=== PATIENT | male | born 1990 | race Caucasian/White ===

== ENCOUNTER 2021-08-14 02:37 | Inpatient (IN) | payer SELFPAY ==
--- OUTSIDE RECORDS SUMMARY | 2021-08-14 02:40 | XMS REPORT | Continuity of Care Document ---
:1990 Author Organization [facility] t Address [address] [place] [address] Care Team Providers Name Role Phone PCP, DOES NOT HAVE A Primary Care Physician Unavailable Soraya WINTERS Attending Clinician Unavailable Lamberto OCASIO Attending Clinician Unavailable Christina BERGER Admitting Clinician Unavailable Lamberto OCASIO Admitting Clinician Unavailable Problems This patient has no known problems. Allergies, Adverse Reactions, Alerts Allergy Allergy Status Severity Reaction(s) Onset Inactive Treating Comm ents Source Name Type Date Date Clinician [facility] DRUG Active Swelling Univer s IN [facility]GR[facility]I 05-14 ity of 00:00: [address] Medications This patient has no known medications. Procedures This patient has no known procedures. Encounters Start End Encounter Admission Attending Care Care Encounter Source Date/Time Date/Time Type Type Clinicians Facility Department ID 2019-10-02 2019-10-02 Emergency X VIANEY [facility] ERT [id number] [facility] 08:16:40 10:55:[address] [facility] 2019-03-25 2019-03-25 Emergency X NINFA [facility] ERT [id number] [facility] 17:46:17 20:04:[address] [facility] Results This patient has no known results.
[2021-08-14] MEDS ORDERED: MORPHINE 4 MG/ML SYR ONE (03:24)
[2021-08-14] MEDS ORDERED: ONDANSETRON 4 MG/2 ML VIAL ONE (03:24)
[2021-08-14 03:31] LABS: Absolute Lymphocytes (CBC) 2.2 K/uL (0.7-4.9); Hematocrit 47.2 % (39.6-49.0); MPV 7.9 fL (7.6-11.3)
[2021-08-14 03:47] LABS: ALT/SGPT 26 U/L (12-78); AST/SGOT 25 U/L (15-37); Albumin 4.7 g/dL (3.4-5.0); Alkaline Phosphatase 74 U/L (45-117); BUN Blood Urea Nitrogen 18 mg/dL (7-18); Bicarbonate 28 mmol/L (21-32); Bilirubin Total 1.1 mg/dL (0.2-1.0); Glucose Level 111 mg/dL (74-106); Lipase 156 U/L (73-393); Potassium 3.6 mmol/L (3.5-5.1); Protein, Total 8.4 g/dL (6.4-8.2); Sodium Level 138 mmol/L (136-145)
[2021-08-14] MEDS ORDERED: PROMETHAZINE INJ 25 MG/ML AMP ONE (05:08)
[2021-08-14] MEDS ORDERED: PIPERACIL/TAZO 3.375 GM VIAL IV ONE ×2 (05:27→09:37)
[2021-08-14] MEDS ORDERED: NA CHLORIDE 0.9% 100 ML ONE (05:29)
--- NOTE | 2021-08-14 06:18 | ER ---
Nurse's Notes [facility] Name: Elías Marinelli Age: 31 yrs Sex: Male : 1990 Arrival Date: 08/14/2021 Time: 02:38 Bed 7 [facility] MD: Diagnosis: Unspecified acute appendicitis Presentation: 08/14 02:49 Chief complaint: Patient states: he is having abdominal pain with nausea and vomiting bb which started yesterday denies diarrhea or fever, pain does not radiate. Coronavirus screen: At this time, the client does not indicate any symptoms associated with coronavirus-19. Ebola Screen: No symptoms or risks identified at this time. Initial Sepsis Screen: Does the patient meet any 2 criteria? No. Patient's initial sepsis screen is negative. Does the patient have a suspected source of infection? No. Patient's initial sepsis screen is negative. Risk Assessment: Do you want to hurt yourself or someone else? Patient reports no desire to harm self or others. Onset of symptoms was August 13, 2021. 02:49 Method Of Arrival: Ambulatory bb 02:49 Acuity: ALEE 3 bb Historical: - Allergies: 02:51 eye drop; bb - Home Meds: 02:51 None [Active]; bb - PMHx: 02:51 None; bb - PSHx: 02:51 None; bb - Immunization history:: Client reports having NOT received the Covid vaccine. - Social history:: Smoking status: Patient reports the use of cigarette tobacco products, Patient/guardian denies using alcohol. Screenin:13 Abuse screen: Denies threats or abuse. Nutritional screening: No deficits noted. ag7 Tuberculosis screening: No symptoms or risk factors identified. Fall Risk No fall in past 12 months (0 pts). No secondary diagnosis (0 pts). No IV (0 pts). Ambulatory Aid- None/Bed Rest/Nurse Assist (0 pts). Gait- Normal/Bed Rest/Wheelchair (0 pts) Mental Status- Oriented to own ability (0 pts). Total Murillo Fall Scale indicates No Risk (0-24 pts). Assessment: 03:00 General: Appears in no apparent distress. slender, Behavior is calm, cooperative, ag7 appropriate for age. Pain: Complains of pain in umbilical area, right upper quadrant and left upper quadrant Pain does not radiate. Pain currently is 10 out of 10 on a pain scale. Quality of pain is described as aching, Pain began suddenly, Is continuous, Alleviated by nothing. Aggravated by. Neuro: Level of Consciousness is awake, alert, obeys commands, Oriented to person, place, time, situation, Appropriate for age. Cardiovascular: Denies chest pain, Heart tones S1 S2 present. Respiratory: Airway is patent Trachea midline Respiratory effort is even, unlabored, Respiratory pattern is regular, symmetrical. GI: Abdomen is non-distended, Bowel sounds present X 4 quads. Abd is soft X 4 quads Abdomen is tender to palpation in umbilical area Reports nausea, vomiting, Patient currently denies diarrhea. 03:23 Reassessment: Verbal order received to give the patient Zofran 4 mg IVP and Morphine 4 ag7 mg IVP for nausea and pain, order read back MD Apple. 04:30 Reassessment: Patient and/or family updated on plan of care and expected duration. Pain ag7 level reassessed. Patient is alert, oriented x 3, equal unlabored respirations, skin warm/dry/pink. Patient states feeling better. Patient states symptoms have improved. 05:10 GI: Pt is actively vomiting clear fluid, 50 ml. ag7 Vital Signs: 02:49 BP 134 / 84; Pulse 69; Resp 16 S; Temp 97.8(O); Pulse Ox 100% on R/A; Weight 90.72 kg bb (R); Height 6 ft. 0 in. (182.88 cm) (R); Pain 9/10; 03:30 BP 132 / 76; Pulse 69; Resp 16; Pulse Ox 96% on R/A; ll3 04:30 BP 152 / 93; Pulse 71; Resp 17; Pulse Ox 100% on R/A; ll3 04:47 Pain 8/10; ag7 05:15 BP 146 / 94; Pulse 70; Resp 16 S; Pulse Ox 98% on R/A; Pain 9/10; ag7 06:00 BP 142 / 87; Pulse 73; Resp 16; Pulse Ox 96% on R/A; Pain 8/10; ag7 02:49 Body Mass Index 27.12 (90.72 kg, 182.88 cm) ED Course: 02:38 Patient arrived in ED. romaine 02:51 Triage completed. bb 02:51 Arm band placed on Patient placed in an exam room, on a stretcher, on pulse oximetry. bb 03:00 Brenda Shi, RN is Primary Nurse. ag7 03:12 Inserted saline lock: 20 gauge in right antecubital area, using aseptic technique. ag7 Blood collected. 03:13 Patient has correct armband on for positive identification. Bed in low position. Call ag7 light in reach. Side rails up X 1. 03:26 Ezio Apple MD is Attending Physician. 7 05:04 CT Abd/Pelvis - IV Contrast Only In Process Unspecified. EDMS 06:03 Surgeon paged at 06:05 Dr. Orta. eb 06:17 Hamzah Orta MD is Hospitalizing Provider. 7 06:26 COVID-19/FLU A+B (Document "Date of Onset" if Symptomatic) Sent. ag7 Administered Medications: 03:30 Drug: morphine 4 mg {Note: RASS 0.} Route: IVP; Site: right antecubital; ag7 04:47 Follow up: Pain 8/10 Adult; Response: No adverse reaction; Pain is decreased ag7 03:31 Drug: Zofran (Ondansetron) 4 mg Route: IVP; Site: right antecubital; ag7 04:30 Follow up: Response: No adverse reaction; Nausea unchanged ag7 05:09 Drug: Phenergan (promethazine) 12.5 mg Route: IVP; Site: right antecubital; ag7 06:09 Follow up: Response: No adverse reaction; Marked relief of symptoms ag7 05:33 Drug: Zosyn (piperacillin-tazobactam) 3.375 grams Route: IVPB; Infused Over: 60 mins; ag7 Site: right antecubital; 06:19 Follow up: Response: No adverse reaction ag7 06:39 Follow up: IV Status: Completed infusion; IV Intake: 100ml ag7 Intake: 06:39 IV: 100ml; Total: 100ml. ag7 Outcome: 06:17 Decision to Hospitalize by Provider. 7 09:56 Patient left the ED. iw Signatures: Dispatcher [employer] EDMS Yen Saldivar RN RN bb Keisha Graham RN RN Yasmin Victoria Ezio Apple MD MD [facility] Shannan Quintana RN RN ll3 Marya Rodriguez Angela, RN RN ag7 Corrections: (The following items were deleted from the chart) 02:52 02:51 Allergies: No Known Allergies; bb bb 03:12 03:12 Inserted saline lock: 20 gauge in right antecubital area, using aseptic ag7 technique. ag7 04:48 04:30 Response: No adverse reaction; Nausea unchanged ag7 ag7
--- NOTE | 2021-08-14 06:18 | EDPHYS ---
Physician Documentation [facility] Name: Elías Marinelli Age: 31 yrs Sex: Male : 1990 Arrival Date: 08/14/2021 Time: 02:38 Bed 7 Private MD: ED Physician Ezio Apple HPI: 08/14 03:25 This 31 yrs old Male presents to ER via Ambulatory with complaints of Abdominal Pain, mh7 Back Pain. 03:25 The patient presents with abdominal pain that is diffuse. mh7 03:25 Onset: The symptoms/episode began/occurred yesterday. The symptoms do not radiate. mh7 Associated signs and symptoms: Pertinent positives: nausea and vomiting, Pertinent negatives: anorexia, blood in stools, chest pain, constipation, diarrhea, dysuria, fever, headache, hematuria, palpitations, shortness of breath, testicular pain, vomiting blood. The symptoms are described as intermittent, vague, waxing/waning. Modifying factors: The symptoms are alleviated by nothing, the symptoms are aggravated by nothing. Severity of pain: At its worst the pain was moderate last night, in the emergency department the pain is unchanged. Historical: - Allergies: 02:51 eye drop; bb - Home Meds: 02:51 None [Active]; bb - PMHx: 02:51 None; bb - PSHx: 02:51 None; bb - Immunization history:: Client reports having NOT received the Covid vaccine. - Social history:: Smoking status: Patient reports the use of cigarette tobacco products, Patient/guardian denies using alcohol. ROS: 03:25 Constitutional: Negative for fever, chills, and weight loss, Eyes: Negative for injury, mh7 pain, redness, and discharge, ENT: Negative for injury, pain, and discharge, Neck: Negative for injury, pain, and swelling, Cardiovascular: Negative for chest pain, palpitations, and edema, Respiratory: Negative for shortness of breath, cough, wheezing, and pleuritic chest pain, Back: Negative for injury and pain, : Negative for injury, bleeding, discharge, and swelling, MS/Extremity: Negative for injury and deformity, Skin: Negative for injury, rash, and discoloration, Neuro: Negative for headache, weakness, numbness, tingling, and seizure, Psych: Negative for depression, anxiety, suicide ideation, homicidal ideation, and hallucinations, Allergy/Immunology: Negative for hives, rash, and allergies, Endocrine: Negative for neck swelling, polydipsia, polyuria, polyphagia, and marked weight changes, Hematologic/Lymphatic: Negative for swollen nodes, abnormal bleeding, and unusual bruising. Exam: 03:25 Head/Face: Normocephalic, atraumatic. Eyes: Pupils equal round and reactive to light, mh7 extra-ocular motions intact. Lids and lashes normal. Conjunctiva and sclera are non-icteric and not injected. Cornea within normal limits. Periorbital areas with no swelling, redness, or edema. Neck: Trachea midline, no thyromegaly or masses palpated, and no cervical lymphadenopathy. Supple, full range of motion without nuchal rigidity, or vertebral point tenderness. No Meningismus. Chest/axilla: Normal chest wall appearance and motion. Nontender with no deformity. No lesions are appreciated. Cardiovascular: Regular rate and rhythm with a normal S1 and S2. No gallops, murmurs, or rubs. Normal PMI, no JVD. No pulse deficits. Respiratory: Lungs have equal breath sounds bilaterally, clear to auscultation and percussion. No rales, rhonchi or wheezes noted. No increased work of breathing, no retractions or nasal flaring. 03:25 Back: No spinal tenderness. No costovertebral tenderness. Full range of motion. Skin: Warm, dry with normal turgor. Normal color with no rashes, no lesions, and no evidence of cellulitis. MS/ Extremity: Pulses equal, no cyanosis. Neurovascular intact. Full, normal range of motion. Neuro: Awake and alert, GCS 15, oriented to person, place, time, and situation. Cranial nerves II-XII grossly intact. Motor strength 5/5 in all extremities. Sensory grossly intact. Cerebellar exam normal. Normal gait. Psych: Awake, alert, with orientation to person, place and time. Behavior, mood, and affect are within normal limits. 03:25 Constitutional: The patient appears in no acute distress, alert, awake, uncomfortable. 03:25 Abdomen/GI: Inspection: abdomen appears normal, Bowel sounds: normal, in all quadrants, Palpation: moderate abdominal tenderness, in all quadrants, mass, is not appreciated, rebound tenderness, is not appreciated, voluntary guarding, is not appreciated, involuntary guarding, is not appreciated, no appreciated organomegaly, Rectal exam: the exam is deferred, because of patient request, Indicators: McBurney's point is not tender, Abarca's sign is negative, Rovsing's sign is negative, Obturator sign is negative, Psoas sign is negative, Liver: no appreciated palpable abnormalities, Hernia: not appreciated. Vital Signs: 02:49 BP 134 / 84; Pulse 69; Resp 16 S; Temp 97.8(O); Pulse Ox 100% on R/A; Weight 90.72 kg bb (R); Height 6 ft. 0 in. (182.88 cm) (R); Pain 9/10; 03:30 BP 132 / 76; Pulse 69; Resp 16; Pulse Ox 96% on R/A; ll3 04:30 BP 152 / 93; Pulse 71; Resp 17; Pulse Ox 100% on R/A; ll3 04:47 Pain 8/10; ag7 05:15 BP 146 / 94; Pulse 70; Resp 16 S; Pulse Ox 98% on R/A; Pain 9/10; ag7 06:00 BP 142 / 87; Pulse 73; Resp 16; Pulse Ox 96% on R/A; Pain 8/10; ag7 02:49 Body Mass Index 27.12 (90.72 kg, 182.88 cm) MDM: 06:15 Differential diagnosis: appendicitis, bowel obstruction, gastritis, gastroesophageal mh7 reflux disease, non-specific abd pain, pancreatitis, urinary tract infection. Data reviewed: vital signs, nurses notes, lab test result(s), CBC, electrolytes, radiologic studies, CT scan. Data interpreted: Pulse oximetry: on room air is 100 %. Interpretation: normal. Counseling: I had a detailed discussion with the patient and/or guardian regarding: the historical points, exam findings, and any diagnostic results supporting the discharge/admit diagnosis, lab results, radiology results, the need for further work-up and treatment in the hospital. Response to treatment: the patient's symptoms have mildly improved after treatment. Physician consultation: Hamzah Orta MD was contacted at 06:10, regarding patient's condition, and will see patient in inpatient room. 06:17 Patient medically screened. [facility] 08/14 03:12 Order name: CBC with Diff; Complete Time: 04:16 7 08/14 03:12 Order name: CMP; Complete Time: 04:16 ag7 08/14 03:12 Order name: Lipase; Complete Time: 04:16 ag7 08/14 03:51 Order name: CT Abd/Pelvis - IV Contrast Only 7 08/14 06:21 Order name: COVID-19/FLU A+B (Document "Date of Onset" if Symptomatic) 7 08/14 03:12 Order name: IV Saline Lock; Complete Time: 03:12 ag7 08/14 03:12 Order name: Labs collected and sent; Complete Time: 03:12 ag7 08/14 06:25 Order name: NPO; Complete Time: 06:40 EDMS Administered Medications: 03:30 Drug: morphine 4 mg {Note: RASS 0.} Route: IVP; Site: right antecubital; ag7 04:47 Follow up: Pain 8 Adult; Response: No adverse reaction; Pain is decreased ag7 03:31 Drug: Zofran (Ondansetron) 4 mg Route: IVP; Site: right antecubital; ag7 04:30 Follow up: Response: No adverse reaction; Nausea unchanged ag7 05:09 Drug: Phenergan (promethazine) 12.5 mg Route: IVP; Site: right antecubital; ag7 06:09 Follow up: Response: No adverse reaction; Marked relief of symptoms ag7 05:33 Drug: Zosyn (piperacillin-tazobactam) 3.375 grams Route: IVPB; Infused Over: 60 mins; ag7 Site: right antecubital; 06:19 Follow up: Response: No adverse reaction ag7 06:39 Follow up: IV Status: Completed infusion; IV Intake: 100ml ag7 Disposition Summary: 08/14/21 06:17 Hospitalization Ordered Hospitalization Status: Inpatient Admission [facility] Provider: Hamzah Orta Condition: Stable [facility] Problem: new [facility] Symptoms: have improved [facility] Bed/Room Type: Standard [facility] Location: [facility] ER HOLD(08/14/21 06:20) cg Room Assignment: ERHOLD-(08/14/21 06:20) cg Diagnosis - Unspecified acute appendicitis [facility] Forms: - Medication Reconciliation Form [facility] - SBAR form [facility] Signatures: Dispatcher [employer] EDMS SaldivarYen RN RN bb Garcia, Cindy, RN RN cg Holmes, Maurice, MD MD [facility] Brenda Shi RN RN 7 Corrections: (The following items were deleted from the chart) 02:52 02:51 Allergies: No Known Allergies; alon chi : 06:17 Telemetry/MedSurg (Inpatient) [facility] 06:20 06:17 [facility]
[2021-08-14] MEDS ORDERED: ONDANSETRON 4 MG/2 ML VIAL IV PRN ×2 (06:21→12:52)
[2021-08-14] MEDS ORDERED: MORPHINE 4 MG/ML SYR IV PRN (06:21)
[2021-08-14 07:30] LABS: SARS-COV-2 RT PCR NEGATIVE (NEGATIVE)
[2021-08-14] MEDS: D5 0.45 NS 1,000 ML IV SCH ×3 (09:30→22:55)
[2021-08-14] MEDS: PIPER TAZO 3.375 GM in NA CHLORIDE 0.9% 100 ML IV SCH ×2 (09:30→16:22)
[2021-08-14] MEDS ORDERED: NA CHLORIDE 0.9% 100 ML IV ONE (09:36)
[2021-08-14] MEDS ORDERED: D5 0.45 NS 1,000 ML IV ONE (09:37)
[2021-08-14] MEDS ORDERED: Ringers Lactate 1,000 ML IV ONE (10:00)
--- NOTE | 2021-08-14 10:45 | P.HP ---
Date of Service: 08/14/21 Chief complaint: Abdominal pain History of present Illness: Patient is a 31-year-old gentleman presents to the emergency room with 1 day history of diffuse abdominal pain worsening over the last 24 hours and associated with nausea and vomiting. Pain is worse on the right side today. Patient has anorexia. Patient denies diarrhea, constipation, blood per rectum, dysuria or hematuria. Patient denies sore throat, headaches, dizziness, cough, chest pain or fever or chills. Review of systems: Otherwise unremarkable Past medical history: Panic attacks, questionable history of seizures, patient is not on any medication Past surgical history: Negative Allergies: None Social history: Denies smoking or drinking alcohol Family history: Noncontributory Vital signs: Stable, currently 100.3 Fahrenheit Physical exam: Awake alert oriented x3 Head and neck: Cranial nerves II through XII grossly within normal limits, no neck masses, no JVD, throat clear and neck is supple Chest: Clear Heart: S1-S2 Abdomen: Soft, slightly distended, hypoactive bowel sounds, diffuse abdominal tenderness with rebound, rigidity and guarding in the right lower quadrant Extremity: Neurovascular intact, nontender with full range of motion Neuro: Nonfocal Diagnostic data: White count is 19.5 with left shift, CT of the abdomen and pelvis shows acute appendicitis with trace pelvic fluid Assessment: Acute appendicitis Plan/recommendation: Admit, n.p.o., IV fluids, IV antibiotics and to the OR for laparoscopic appendectomy possible open. Patient understands risk benefits alternatives and agrees to procedure. CC:
[2021-08-14] MEDS ORDERED: SUCCINYLCHOLINE 20 MG/ML (10 ML) IV ONE (10:50)
[2021-08-14] MEDS ORDERED: BUPIVACAINE 0.5% PF 10 ML VIAL ONE (10:52)
[2021-08-14] MEDS ORDERED: ROCURONIUM 50 MG/5 ML VIAL IV ONE (11:14)
[2021-08-14] MEDS ORDERED: propofoL 200 MG/20 ML VIAL IV ONE (11:14)
[2021-08-14] MEDS ORDERED: FENTANYL CITR 100 MCG/2 ML ONE (11:14)
[2021-08-14] MEDS ORDERED: GLYCOPYRROLATE 0.2 MG/ML SYR ONE (12:11)
[2021-08-14] MEDS ORDERED: NEOSTIGMINE 1 MG/ML -5 ML ONE (12:20)
--- NOTE | 2021-08-14 12:20 | P.OP ---
Date of Service: 08/14/21 Preop diagnosis: Acute appendicitis Postop diagnosis: Same Procedure performed: Laparoscopic appendectomy Surgeon: Hamzah Orta MD Quality Assurance Lab Technician: None Estimated blood loss: Minimal Specimen: Appendix Findings: As above Anesthesia: General Complications: None Drains: None Fluids and blood products: None applicable Disposition: Recovery room Operative note: Patient brought to the OR and placed in supine position. Patient had general anesthesia begun. Patient prepped and draped in usual sterile fashion. Marcaine 0.5% infiltrated locally. 15 blade used to make a 1 cm supraumbilical incision. Subcutaneous tissue divided and fascia identified and divided. #1 Vicryl stay suture placed. Peritoneal cavity entered with sh sagar and blunt dissection. 12 mm trocar placed into the peritoneal cavity under direct vision. Pneumoperitoneum established and 2 5 mm trochars placed into the peritoneal cavity under direct vision. 1 in the suprapubic region and 1 in the left lower quadrant. Laparoscopy revealed acute suppurative appendicitis. There was minimal serous fluid in the pelvis which was aspirated. No other evidence of disease was identified. Endo GAUTAM stapling device was used to divide the base of the appendix on the cecum and the mesoappendix. Appendix retrieved through the umbilicus via Endo Catch bag. Right lower quadrant and pelvis irrigated no evidence of bleeding or bowel leakage appreciated. All trochars removed under direct vision. Stay sutures tied to each other to reapproximate the fascial defect. Subcutaneous wounds irrigated and bleeding controlled with cautery. Magnolia used to close skin. Sterile dressing applied. Patient awakened and taken to recovery room in good general condition. CC:
[2021-08-14] MEDS ORDERED: MEPERIDINE HCL 25 MG/ML SYR ONE (12:26)
[2021-08-14] MEDS ORDERED: HYDROMORPHONE HCL 1 MG/ML INJ IV PRN (12:52)
[2021-08-14] MEDS: HYDROCODONE/APAP 7.5/325 MG TAB PO PRN ×3 (13:53→22:16)
[2021-08-14 14:24] VITALS: BMI 3788.3
--- NOTE | 2021-08-14 20:15 | RAD REPORT ---
EXAM DESCRIPTION: CT - Abdomen Pelvis W Contrast - 08/14/2021 6:44 am CLINICAL HISTORY: Abdominal pain, acute, nonlocalized COMPARISON: None. TECHNIQUE: CT ABDOMEN PELVIS WITH IV CONTRAST on 08/14/2021 3:51 AM CDT This exam was performed according to our departmental dose-optimization program, which includes autom ated exposure control, adjustment of the mA and/or kV according to patient size and/or use of iterati ve reconstruction technique. FINDINGS: Lower lungs are clear. Abdomen: The liver is normal in appearance. There is no biliary dilatation. Gallbladder is normal in appearance. The pancreas and spleen are normal in appearance. There is a 3 mm lower pole left renal c alculus. Right kidney and both adrenal glands are normal. Abdominal aorta is normal in course and caliber without aneurysm. There is no free air. There is no r etroperitoneal adenopathy. There is a tiny fat-containing umbilical abdominal wall hernia. Pelvis: There is no bowel obstruction. Urinary bladder is unremarkable. There is trace free pelvic fl uid. Appendix is diffusely dilated measuring up to 1.3 cm. There is mild surrounding inflammation. Skeleton: There are no acute osseous findings. No suspicious bony lesions. IMPRESSION: Acute appendicitis. Electronically signed by: Maximo Murcia MD 08/14/2021 5:46 AM CDT Due to temporary technical issues with the PACS/Fluency reporting system, reports are being signed by the in house radiologists without review as a courtesy to insure prompt reporting. The interpreting radiologist is fully responsible for the content of the report.
[2021-08-14 20:37] VITALS: O2SAT 100
[2021-08-15] MEDS: PIPER TAZO 3.375 GM in NA CHLORIDE 0.9% 100 ML IV SCH ×2 (01:19→08:31)
[2021-08-15 05:03] LABS: Absolute Lymphocytes (CBC) 3.1 K/uL (0.7-4.9); Hematocrit 42.6 % (39.6-49.0); Lymphocytes % 21.2 % (15.3-44.8); MPV 7.6 fL (7.6-11.3); RBC Red Blood Cell Count 4.86 M/uL (4.33-5.43)
[2021-08-15] MEDS: HYDROCODONE/APAP 7.5/325 MG TAB PO PRN (07:20)
[2021-08-15] MEDS: D5 0.45 NS 1,000 ML IV SCH (07:21)
[2021-08-15 09:38] VITALS: BP 107/64; TEMP 97.8
--- NOTE | 2021-08-15 10:22 | P.DS ---
Admission Date: 08/14/21 Discharge Date: 08/15/21 Disposition: TRANSFER TO GENERAL HOSPITAL Discharge Condition: GOOD Reason for Admission: Abdominal pain Consultations: None Procedures: Laparoscopic appendectomy - Problems (1) Acute appendicitis Current Visit: Yes Status: Acute Brief History of Present Illness: Patient is a 32-year-old gentleman who presented to the emergency room with abdominal pain. Work-up revealed acute appendicitis. Patient taken to the operating room and laparoscopic appendectomy performed. Postoperatively patient is tolerating diet, ambulating, pain controlled on p.o. pain medication and afebrile; therefore, patient will be discharged to home. Patient's leukocytosis has improved. Disposition: Home Condition: Stable Resume home meds and diet Activity as tolerated no heavy lifting more than 10 pounds Follow-up my office in 1 week and call for appointment Prescription for Cipro, Flagyl and Tylenol 3 called into [facility] in [place] Vital Signs/Physical Exam: Temp Pulse Resp BP Pulse Ox 97.8 F 109 H 20 107/64 99 08/15/21 08:00 08/15/21 09:37 08/15/21 09:37 08/15/21 09:37 08/15/21 09:37 Laboratory Data at Discharge: WBC 14.7 K/uL (4.3-10.9) H D 08/15/21 04:35 Hgb 14.4 g/dL (13.6-17.9) 08/15/21 04:35 Hct 42.6 % (39.6-49.0) 08/15/21 04:35 Plt Count 219 K/uL (152-406) 08/15/21 04:35 Sodium 138 mmol/L (136-145) 08/14/21 03:15 Potassium 3.6 mmol/L (3.5-5.1) 08/14/21 03:15 BUN 18 mg/dL (7-18) 08/14/21 03:15 Creatinine 0.91 mg/dL (0.55-1.3) 08/14/21 03:15 Glucose 111 mg/dL (74-106) H 08/14/21 03:15 Total Bilirubin 1.1 mg/dL (0.2-1.0) H 08/14/21 03:15 AST 25 U/L (15-37) 08/14/21 03:15 ALT 26 U/L (12-78) 08/14/21 03:15 Alkaline Phosphatase 74 U/L (45-117) 08/14/21 03:15 Lipase 156 U/L (73-393) 08/14/21 03:15 Home Medications: NK [No Home Meds] 08/14/21 Physician Discharge Instructions: Remove outer dressing in a.m. and shower Keep wound clean and dry Bandage or gauze to wound daily after shower Incentive spirometry as ordered Tylenol 3, [facility] [place] Diet: Regular Activity: No lifting more than 10 lbs Followup: NONE,NONE [Primary Care Provider] - Hamzah Orta MD [ACTIVE - CAN ADMIT] - 1 Week
== END 2021-08-15 12:41 | disposition home or self-care (01) | DRG 343 ==
LOC: ER 02:37 → ERHOLD 06:20 → 3RD-ICU 13:23
PROVIDERS: ADMIT Surgery; ATTEND Surgery
PROC: 0DTJ4ZZ Resection of Appendix, Percutaneous Endoscopic Approach (ICD-10-PCS; principal; 2021-08-14 10:15)
DX: K35.80 Unspecified acute appendicitis (principal); R63.0 Anorexia; Z68.27 Body mass index [BMI] 27.0-27.9, adult; F41.0 Panic disorder [episodic paroxysmal anxiety]; F41.9 Anxiety disorder, unspecified; F17.210 Nicotine dependence, cigarettes, uncomplicated; Z28.310 Unvaccinated for COVID-19; Z20.822 Contact with and (suspected) exposure to COVID-19
CPT/HCPCS: 0240U; 36415; 74177; 80053; 83690; 85025; 88304; 94010; 96365; 96375; 99284; J0330; J2175; J2405; J2543; J2550; J2704; J2710; J3010; J7120; J7799; Q9967

== ENCOUNTER 2022-09-15 19:20 | Emergency (ER) | payer OTHER, SELFPAY ==
--- OUTSIDE RECORDS SUMMARY | 2022-09-15 19:23 | XMS REPORT | Continuity of Care Document ---
:1990 Author Organization [facility] t Address [address] [facility] [address] [place] [address] Care Team Providers Name Role Phone PCP, PATIENT DOES NOT HAVE A Primary Care Physician UnavailISMA Cueto Attending Clinician Unavailable GAYLE OCASIO Attending Clinician Unavailable INDIRA BERGER Admitting Clinician Unavailable GAYLE OCASIO Admitting Clinician Unavailable Problems This patient has no known problems. Allergies, Adverse Reactions, Alerts Allergy Allergy Status Severity Reaction(s) Onset Inactive Treating Comm ents Source Name Type Date Date Clinician GENTAMIC DRUG Active Swelling Univer s IN INGREDI 05-14 ity of 00:00: [address] Medications This patient has no known medications. Procedures This patient has no known procedures. Encounters Start End Encounter Admission Attending Care Care Encounter Source Date/Time Date/Time Type Type Clinicians Facility Department ID 2019-10-02 2019-10-02 Emergency X VIANEY [facility] ERT [id number] [facility] 08:16:40 10:55:00 ISMA stanley [facility] 2019-03-25 2019-03-25 [facility] [id number] [facility] 17:46:17 20:04:00 GAYLE [facility] Results This patient has no known results.
[2022-09-15] MEDS ORDERED: ACETAMINOPHEN 325 MG TABLET ONE (20:21)
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
[2022-09-15] MEDS ORDERED: MORPHINE 4 MG/ML SYR ONE (21:54)
[2022-09-15] MEDS ORDERED: KETOROLAC 30 MG/ML INJ ONE (21:54)
[2022-09-15 22:24] VITALS: TEMP 99.3
[2022-09-15 22:29] VITALS: O2SAT 97
[2022-09-15 22:30] VITALS: BP 137/90
== END 2022-09-15 22:03 | disposition home or self-care (01) ==
LOC: ER 19:20
DX: M54.2 Cervicalgia (principal); M54.50 Low back pain, unspecified; V59.40XA Driver of pick-up truck or van injured in collision with unspecified motor vehicles in traffic accident, initial encounter; Z88.3 Allergy status to other anti-infective agents; Z88.8 Allergy status to other drugs, medicaments and biological substances
CPT/HCPCS: 70450; 71045; 72125; 72131; 96372; 99284

== ENCOUNTER 2022-09-18 00:18 | Emergency (ER) | payer SELFPAY ==
--- OUTSIDE RECORDS SUMMARY | 2022-09-18 00:23 | XMS REPORT | Continuity of Care Document ---
:1990 Author Organization [facility] t Address [address] [place] [address] Care Team Providers Name Role Phone PCP, [...] s IN INGREDI 05-14 ity of 00:00: [address] Medications This patient has no known medications. Procedures This patient has no known procedures. Encounters Start End Encounter Admission Attending Care Care Encounter Source Date/Time Date/Time Type Type Clinicians Facility Department ID 2019-10-02 2019-10-02 Emergency X VIANEY [facility] ERT [id number] [facility] 08:16:40 10:55:00 ISMA stanley [facility] 2019-03-25 2019-03-25 Emergency [facility] ERT [id number] [facility] 17:46:17 20:04:00 GAYLE [facility] Results This patient has no known results.
[2022-09-18] MEDS ORDERED: METHYLPREDNISOLONE 125 MG INJ ONE (01:30)
[2022-09-18] MEDS ORDERED: methocarbamoL 750 MG TAB ONE (01:31)
[2022-09-18] MEDS ORDERED: KETOROLAC 30 MG/ML INJ ONE (01:31)
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
[2022-09-18 03:32] VITALS: TEMP 98.5
[2022-09-18 03:34] VITALS: BP 113/78; O2SAT 97
== END 2022-09-18 03:16 | disposition home or self-care (01) ==
LOC: ER 00:18
DX: M54.50 Low back pain, unspecified (principal); M54.2 Cervicalgia; M54.9 Dorsalgia, unspecified
CPT/HCPCS: 96372; 99284; J2930

== ENCOUNTER 2022-09-26 14:27 | Emergency (ER) | payer SELFPAY ==
--- OUTSIDE RECORDS SUMMARY | 2022-09-26 14:31 | XMS REPORT | Continuity of Care Document ---
:1990 Author Organization [facility] t Address [address] [facility] [facility] [address] [place] [address] Care Team Providers Name Role Phone PCP, [...] s IN INGREDI 05-14 ity of 00:00: [address] Medications This patient has no known medications. Procedures This patient has no known procedures. Encounters Start End Encounter Admission Attending Care Care Encounter Source Date/Time Date/Time Type Type Clinicians Facility Department ID 2019-10-02 2019-10-02 Emergency X [facility] ERT [id number] [facility] 08:16:40 10:55:00 [facility] 2019-03-25 2019-03-[address] [id number] 17:46:17 20:04:00 GAYLE [facility] Results This patient has no known results.
[2022-09-26] MEDS ORDERED: KETOROLAC 30 MG/ML INJ ONE (14:55)
[2022-09-26] MEDS ORDERED: NA CHLORIDE 0.9% 1,000 ML ONE (14:55)
[2022-09-26] MEDS ORDERED: MORPHINE 4 MG/ML SYR ONE (14:55)
[2022-09-26] MEDS ORDERED: ONDANSETRON 4 MG/2 ML VIAL ONE (14:55)
[2022-09-26 15:06] LABS: Absolute Lymphocytes (CBC) 1.5 K/uL (0.7-4.9); Lymphocytes % 8.1 % (15.3-44.8); MPV 7.3 fL (7.6-11.3); RBC Red Blood Cell Count 5.28 M/uL (4.33-5.43)
--- NOTE | 2022-09-26 15:18 | RAD REPORT ---
EXAM DESCRIPTION: CT - Abdomen Pelvis Wo Contrast - 09/26/2022 3:00 pm CLINICAL HISTORY: Abdominal pain COMPARISON: 2021 TECHNIQUE: Computed axial tomography of the abdomen and pelvis was obtained. IV and oral contrast we re not requested. All CT scans are performed using dose optimization technique as appropriate and may include automated exposure control or mA/KV adjustment according to patient size. FINDINGS: The evaluation of solid organs, vessels and bowel is limited secondary to the lack of con trast administration. 5 millimeter calculus left UPJ. Mild left hydronephrosis. Tiny nonobstructing calculi right kidney Liver, spleen, and adrenals grossly normal. 9 millimeter calculus pancreas likely benign Appendectomy. There is no evidence of diverticulitis. Trace amount of free fluid within the pelvis IMPRESSION: 5 millimeter calculus left UPJ results in mild left hydronephrosis
[2022-09-26 15:22] LABS: Albumin 4.5 g/dL (3.4-5.0); Bilirubin Total 0.8 mg/dL (0.2-1.0); Potassium 3.4 mEq/L (3.5-5.1)
[2022-09-26 15:54] LABS: Urine Bacteria <20 /HPF (<20); Urine Bilirubin NEGATIVE (Negative); Urine Blood 3+ (OVER) (Negative); Urine Clarity Extremely Turbid (Clear); Urine Color Light-Orange (Yellow); Urine Glucose NEGATIVE (Negative); Urine Mucus 2+ /HPF (None Seen); Urine Protein 1+ (Negative); Urine RBC >50 /HPF (None Seen); Urine Urobilinogen Normal (Normal); Urine pH 5.5 (5.0-7.0)
--- NOTE | 2022-09-26 16:02 | EDPHYS ---
Physician Documentation [facility] Name: Elías aMrinelli Age: 32 yrs Sex: Male : 1990 Arrival Date: 09/26/2022 Time: 14:27 Bed 26 Private MD: ED Physician Jim Beal HPI: 09/26 15:40 This 32 yrs old Male presents to ER via Ambulatory with complaints of Abdominal Pain, ms3 Back Pain. 15:40 32-year-old male with with no past medical history presents for left flank pain that ms3 began earlier today. Patient states pain is 10/10 described as pressure. Patient endorses nausea and vomiting. Patient denies fevers.. Historical: - Allergies: 14:42 eye drop; ss 14:42 Gentamicin; ss - PMHx: 14:42 None; ss - PSHx: 14:42 Appendectomy; ss - Immunization history:: Client reports having NOT received the Covid vaccine. - Social history:: Smoking status: Patient reports the use of cigarette tobacco products, cigars. ROS: 15:40 Constitutional: Negative for fever, and chills. Cardiovascular: Negative for chest ms3 pain, and palpitations. Respiratory: Negative for shortness of breath, cough, wheezing, and pleuritic chest pain. 15:40 Abdomen/GI: Positive for nausea, vomiting. 15:40 Back: Positive for flank pain, on the left. 15:40 All other systems are negative. Exam: 15:40 Constitutional: This is a well developed, well nourished patient who is awake, alert, ms3 and in no acute distress. Head/Face: Normocephalic, atraumatic. Neck: Trachea midline, no cervical lymphadenopathy. Supple, full range of motion without nuchal rigidity, or vertebral point tenderness. No Meningismus. Chest/axilla: Normal chest wall appearance and motion. Nontender with no deformity. Cardiovascular: Regular rate and rhythm with a normal S1 and S2. No gallops, murmurs, or rubs. Normal PMI, no JVD. No pulse deficits. Respiratory: Lungs have equal breath sounds bilaterally, clear to auscultation and percussion. No rales, rhonchi or wheezes noted. No increased work of breathing, no retractions or nasal flaring. Abdomen/GI: Soft, non-tender, with normal bowel sounds. No distension or tympany. No guarding or rebound. No evidence of tenderness throughout. 15:40 Back: CVA tenderness, that is severe, is noted on the left. Vital Signs: 14:42 BP 145 / 83; Pulse 89; Resp 20; Temp 99(TE); Pulse Ox 100% on R/A; Weight 81.65 kg; ss Height 6 ft. 0 in. ; Pain 10/10; 14:55 BP 120 / 81; Pulse 78; Resp 18; Pulse Ox 100% on R/A; Pain 10/10; mb9 15:34 BP 122 / 84; Pulse 70; Resp 16; Pulse Ox 100% on R/A; mb9 14:42 Body Mass Index 24.41 (81.65 kg, 182.88 cm) ss 14:42 Pain Scale: Adult ss 14:55 Pain Scale: Adult mb9 MDM: 14:45 Patient medically screened. ms3 15:40 Differential diagnosis: Ureterolithiasis Diverticulitis vs UTI. ms3 16:05 Data reviewed: vital signs, nurses notes, lab test result(s), radiologic studies, and ms3 as a result, I will discharge patient. I considered the following discharge prescriptions or medication management in the emergency department Medications were administered in the Emergency Department. See MAR. Care significantly affected by the following Social Determinants of Health: Poor access to healthcare and/or lack of insurance. Counseling: I had a detailed discussion with the patient and/or guardian regarding: the historical points, exam findings, and any diagnostic results supporting the discharge/admit diagnosis, lab results, radiology results, the need for outpatient follow up, to return to the emergency department if symptoms worsen or persist or if there are any questions or concerns that arise at home. Response to treatment: the patient's symptoms have markedly improved after treatment, and as a result, I will discharge patient. Special discussion: I discussed with the patient/guardian in detail that at this point there is no indication for admission to the hospital. It is understood, however, that if the symptoms persist or worsen the patient needs to return immediately for re-evaluation. 09/26 14:46 Order name: CBC with Diff; Complete Time: 15:22 ms3 09/26 14:46 Order name: CMP; Complete Time: 15:22 ms3 09/26 15:23 Order name: Urinalysis W/Microscopic; Complete Time: 15:59 ms3 09/26 14:46 Order name: CT Abd/Pelvis - Without Contrast; Complete Time: 15:22 ms3 09/26 14:46 Order name: IV Saline Lock; Complete Time: 14:55 ms3 09/26 14:46 Order name: Labs collected and sent; Complete Time: 14:55 ms3 Administered Medications: 14:46 Drug: NS 0.9% IV 1000 ml Route: IV; Rate: 1 bolus; Site: left antecubital; mb9 16:11 Follow up: Response: No adverse reaction; IV Status: Completed infusion mb9 14:46 Drug: Ondansetron IVP 4 mg Route: IVP; Site: left antecubital; mb9 15:34 Follow up: Response: No adverse reaction mb9 14:48 Drug: TORadol - Ketorolac IVP 15 mg Route: IVP; Site: left antecubital; mb9 15:34 Follow up: Response: No adverse reaction mb9 14:50 Drug: morphine IVP or IV 4 mg Route: IVP; Infused Over: 4 mins; Site: left antecubital; mb9 15:35 Follow up: Response: No adverse reaction mb9 Disposition Summary: 09/26/22 16:01 Discharge Ordered Location: Home ms3 Condition: Stable ms3 Diagnosis - Ureterolithiasis ms3 - Left Flank pain ms3 Followup: ms3 - With: Enoc Ledbetter MD - When: 2 - 3 days - Reason: Recheck today's complaints Discharge Instructions: - Kidney Stones ms3 - Discharge Summary Sheet mb9 Forms: - Medication Reconciliation Form ms3 - Thank You Letter ms3 - Antibiotic Education ms3 - Prescription Opioid Use ms3 - Work release form mb9 Prescriptions: - Flomax 0.4 mg Oral capsule - take 1 capsule by ORAL route every 24 hours; 20 capsule; Refills: 0, Product ms3 Selection Permitted - Hydrocodone-Acetaminophen 5-325 mg Oral Tablet - take 1 tablet by ORAL route every 6 hours As needed; 12 tablet; Refills: 0, ms3 Product Selection Permitted Signatures: Dispatcher [employer] Karyn Granado RN RN ss Sims, Marcus, DO DO ms3 Dorothy Day RN RN mb9
--- NOTE | 2022-09-26 16:02 | ER ---
Nurse's Notes [facility] Name: Elías Marinelli Age: 32 yrs Sex: Male : 1990 Arrival Date: 09/26/2022 Time: 14:27 Bed 26 Private MD: Diagnosis: Ureterolithiasis;Left Flank pain Presentation: 09/26 14:42 Chief complaint: Patient states: L flank pain that began a few hours ago. Coronavirus ss screen: Client denies travel out of the [place] in the last 14 days. Ebola Screen: Patient denies exposure to infectious person. Patient denies travel to an Ebola-affected area in the 21 days before illness onset. Initial Sepsis Screen: Does the patient meet any 2 criteria? No. Patient's initial sepsis screen is negative. Does the patient have a suspected source of infection? No. Patient's initial sepsis screen is negative. Risk Assessment: Do you want to hurt yourself or someone else? Patient reports no desire to harm self or others. Onset of symptoms was September 26, 2022. 14:42 Acuity: ALEE 2 ss 14:42 Method Of Arrival: Ambulatory ss Historical: - Allergies: 14:42 eye drop; ss 14:42 Gentamicin; ss - PMHx: 14:42 None; ss - PSHx: 14:42 Appendectomy; ss - Immunization history:: Client reports having NOT received the Covid vaccine. - Social history:: Smoking status: Patient reports the use of cigarette tobacco products, cigars. Screenin:43 [facility] ED Fall Risk Assessment (Adult) History of falling in the last 3 months, ss including since admission No falls in past 3 months (0 pts). Abuse screen: Denies threats or abuse. Denies injuries from another. Nutritional screening: No deficits noted. Tuberculosis screening: Never had TB. Assessment: 14:43 General: Appears distressed, uncomfortable, Behavior is cooperative, restless, Denies ss fever, feeling ill. Pain: Complains of pain in left low back and left mid back Pain currently is 10 out of 10 on a pain scale. Pain began 4 hours ago. Neuro: Level of Consciousness is awake, alert, obeys commands, Oriented to person, place, time, situation. Respiratory: Airway is patent Respiratory effort is even, unlabored, Respiratory pattern is regular, symmetrical. GI: Abd is soft X 4 quads Reports nausea, Patient currently denies diarrhea, vomiting. Derm: Skin is intact, is healthy with good turgor, Skin is dry, Skin is pink, warm \T\ dry. normal. 15:34 Reassessment: Patient and/or family updated on plan of care and expected duration. Pain mb9 level reassessed. Patient is alert, oriented x 3, equal unlabored respirations, skin warm/dry/pink. Patient states feeling better. Patient states symptoms have improved. 16:10 Reassessment: Patient and/or family updated on plan of care and expected duration. Pain mb9 level reassessed. Patient is alert, oriented x 3, equal unlabored respirations, skin warm/dry/pink. Patient states feeling better. Patient states symptoms have improved. Vital Signs: 14:42 BP 145 / 83; Pulse 89; Resp 20; Temp 99(TE); Pulse Ox 100% on R/A; Weight 81.65 kg; ss Height 6 ft. 0 in. ; Pain 10/10; 14:55 BP 120 / 81; Pulse 78; Resp 18; Pulse Ox 100% on R/A; Pain 10/10; mb9 15:34 BP 122 / 84; Pulse 70; Resp 16; Pulse Ox 100% on R/A; mb9 14:42 Body Mass Index 24.41 (81.65 kg, 182.88 cm) ss 14:42 Pain Scale: Adult ss 14:55 Pain Scale: Adult mb9 ED Course: 14:29 Patient arrived in ED. rg4 14:39 Jim Beal DO is Attending Physician. ms3 14:39 Dorothy Day, JIN is Primary Nurse. mb9 14:39 Arm band placed on. mb9 14:42 Triage completed. ss 14:43 Patient has correct armband on for positive identification. Bed in low position. Call ss light in reach. 14:46 Inserted saline lock: 20 gauge in left antecubital area, using aseptic technique. mb9 14:56 No provider procedures requiring assistance completed. mb9 15:01 CT Abd/Pelvis - Without Contrast In Process Unspecified. EDMS 15:03 CBC with Diff Sent. mb9 15:03 CMP Sent. mb9 15:59 Enoc Ledbetter MD is Referral Physician. ms3 16:11 IV discontinued, intact, bleeding controlled, No redness/swelling at site. Pressure mb9 dressing applied. Administered Medications: 14:46 Drug: NS 0.9% IV 1000 ml Route: IV; Rate: 1 bolus; Site: left antecubital; mb9 16:11 Follow up: Response: No adverse reaction; IV Status: Completed infusion mb9 14:46 Drug: Ondansetron IVP 4 mg Route: IVP; Site: left antecubital; mb9 15:34 Follow up: Response: No adverse reaction mb9 14:48 Drug: TORadol - Ketorolac IVP 15 mg Route: IVP; Site: left antecubital; mb9 15:34 Follow up: Response: No adverse reaction mb9 14:50 Drug: morphine IVP or IV 4 mg Route: IVP; Infused Over: 4 mins; Site: left antecubital; mb9 15:35 Follow up: Response: No adverse reaction mb9 Medication: 14:43 VIS not applicable for this client. ss Outcome: 16:01 Discharge ordered by . ms3 16:11 Discharged to home ambulatory. mb9 16:11 Condition: stable 16:11 Discharge instructions given to patient, Instructed on discharge instructions, follow up and referral plans. Demonstrated understanding of instructions, follow-up care, medications, Prescriptions given X 2. 16:11 Patient left the ED. mb9 Signatures: Dispatcher [employer] EDMS Karyn Concepcion RN RN ss Garcia, Rubi rg4 Jim Beal DO DO ms3 Dorothy Day RN RN mb9
[2022-09-26 17:20] VITALS: TEMP 99; O2SAT 100
[2022-09-26 17:31] VITALS: BP 122/84
== END 2022-09-26 16:11 | disposition home or self-care (01) ==
LOC: ER 14:27
DX: N20.1 Calculus of ureter (principal)
CPT/HCPCS: 36415; 74176; 80053; 81001; 85025; 96361; 96374; 96375; 99284; J2405; J7030

== ENCOUNTER 2022-10-25 06:24 | Emergency (ER) | payer SELFPAY ==
--- OUTSIDE RECORDS SUMMARY | 2022-10-25 06:27 | XMS REPORT | Continuity of Care Document ---
:1990 Author Organization [facility] t Address [address] [facility] [address] [place] [address] Care Team Providers Name Role Phone PCP, [...] s IN INGREDI 05-14 ity of 00:00: [address] Medications This patient has no known medications. Procedures This patient has no known procedures. Encounters Start End Encounter Admission Attending Care Care Encounter Source Date/Time Date/Time Type Type Clinicians Facility Department ID 2019-10-02 2019-10-02 Emergency X [facility]Y [facility] ERT [id number] [facility] 08:16:40 10:55:00 ISMA [facility] 2019-03-25 2019-03-[id number] 17:46:17 20:04:00 GAYLE [facility] Results This patient has no known results.
[2022-10-25] MEDS ORDERED: Ringers Lactate 1,000 ML IV ONE (07:27)
[2022-10-25] MEDS ORDERED: KETOROLAC 30 MG/ML INJ ONE (07:27)
[2022-10-25 07:40] LABS: Absolute Lymphocytes (CBC) 2.7 K/uL (0.7-4.9); Hematocrit 47.2 % (39.6-49.0); Lymphocytes % 25.2 % (15.3-44.8); MCV 89.2 fL (80-100); MPV 7.2 fL (7.6-11.3)
[2022-10-25 08:10] LABS: Potassium 3.8 mEq/L (3.5-5.1)
[2022-10-25 09:15] LABS: Specific Gravity 1.024 (1.005-1.030); Urine Bacteria None Seen /HPF (<20); Urine Bilirubin NEGATIVE (Negative); Urine Blood 2+ (Negative); Urine Clarity Clear (Clear); Urine Color Yellow (Yellow); Urine Glucose NEGATIVE (Negative); Urine Mucus 2+ /HPF (None Seen); Urine Protein TRACE (Negative); Urine RBC >50 /HPF (None Seen); Urine Urobilinogen Normal (Normal)
--- NOTE | 2022-10-25 09:23 | ER ---
Nurse's Notes [facility] Name: Elías Marinelli Age: 32 yrs Sex: Male : 1990 Arrival Date: 10/25/2022 Time: 06:24 Bed 13 Private MD: Diagnosis: Kidney stone;Left Flank Presentation: 10/25 06:39 Chief complaint: Patient states: out of pain medication for 5 mm kidney stone unable to kl get in to see urologist until mid October discharged from inpatient on September 26 for kidney stone. Coronavirus screen: Vaccine status: Patient reports being unvaccinated. Ebola Screen: Patient negative for fever greater than or equal to 101.5 degrees Fahrenheit, and additional compatible Ebola Virus Disease symptoms. Initial Sepsis Screen: Does the patient meet any 2 criteria? No. Patient's initial sepsis screen is negative. Does the patient have a suspected source of infection? No. Patient's initial sepsis screen is negative. Risk Assessment: Do you want to hurt yourself or someone else? Patient reports no desire to harm self or others. 06:39 Method Of Arrival: Ambulatory kl 06:39 Acuity: ALEE 3 kl 06:46 Note pt not admitted seen in ER and prescribed Hydrocodone out of pain meds. Triage Assessment: 06:44 General: Appears uncomfortable, Behavior is cooperative. Pain: Complains of pain in kl left flank Pain radiates to left groin Pain currently is 10 out of 10 on a pain scale. Historical: - Allergies: 06:43 Gentamicin; kl 06:44 eye drop; kl - PMHx: 06:43 kidnsye stone; kl - PSHx: 06:43 Appendectomy; kl - Immunization history:: Adult Immunizations not up to date. - Social history:: Smoking status: Patient reports the use of cigarette tobacco products, smokes one pack cigarettes per day. Screenin:15 [facility] ED Fall Risk Assessment (Adult) History of falling in the last 3 months, ko1 including since admission No falls in past 3 months (0 pts) Confusion or Disorientation No (0 pts) Intoxicated or Sedated No (0 pts) Impaired Gait No (0 pts) Mobility Assist Device Used No (0 pt) Altered Elimination No (0 pt) Score/Fall Risk Level 0 - 2 = Low Risk Oriented to surroundings, Maintained a safe environment, Educated pt \T\ family on fall prevention, incl call for assistance when getting out of bed, Assessed \T\ reinforced patient's understanding of fall precautions, Provided non-skid footwear, Hourly rounding (assess needs \T\ fall precautionary measures) done, Used ambulatory aids as needed (educated on \T\ assisted with), Used gait belt as appropriate. Abuse screen: Denies threats or abuse. Denies injuries from another. Nutritional screening: No deficits noted. Tuberculosis screening: No symptoms or risk factors identified. Assessment: 07:15 General: Appears distressed, uncomfortable, Behavior is cooperative, appropriate for ko1 age, restless. Pain: Complains of pain in left mid back. Neuro: No deficits noted. Cardiovascular: No deficits noted. Respiratory: No deficits noted. GI: No deficits noted. : Reports kidney stone. EENT: No deficits noted. Derm: No deficits noted. Musculoskeletal: No deficits noted. Vital Signs: 06:39 BP 147 / 100; Pulse 76; Resp 20; Temp 98.1; Pulse Ox 100% on R/A; Weight 86.18 kg; kl Height 6 ft. 0 in. ; Pain 10/10; 07:15 BP 142 / 82; Pulse 74; Resp 18; Pulse Ox 99% ; ko1 09:35 BP 138 / 74; Pulse 68; Resp 16; Pulse Ox 99% ; ko1 06:39 Body Mass Index 25.77 (86.18 kg, 182.88 cm) kl 06:39 Pain Scale: Adult ED Course: 06:27 Patient arrived in ED. ja2 06:43 Triage completed. kl 06:56 Jim Beal DO is Attending Physician. ms3 07:10 Zoë Olivares, JIN is Primary Nurse. ko1 07:15 Inserted saline lock: 20 gauge in right antecubital area, using aseptic technique. ko1 Blood collected. 07:15 Patient has correct armband on for positive identification. Bed in low position. Call ko1 light in reach. Side rails up X 1. Provided Education on: meds. Pulse ox on. NIBP on. Door closed. Noise minimized. Lights dimmed. Warm blanket given. 07:28 CBC with Diff Sent. ko1 07:28 BMP Sent. ko1 09:22 Enoc Ledbetter MD is Referral Physician. ms3 09:35 No provider procedures requiring assistance completed. IV discontinued, intact, ko1 bleeding controlled, No redness/swelling at site. Pressure dressing applied. Administered Medications: 07:28 Drug: Lactated Ringers Solution IV 1000 ml Route: IV; Rate: bolus; Site: right ko1 antecubital; 08:53 Follow up: Response: No adverse reaction; IV Status: Completed infusion; IV Intake: ko1 1000ml 07:29 Drug: Ketorolac IVP 10 mg 10 mg Route: IVP; Site: right antecubital; ko1 08:53 Follow up: Response: No adverse reaction; Pain is decreased ko1 Medication: 09:35 VIS not applicable for this client. ko1 Intake: 08:53 IV: 1000ml; Total: 1000ml. ko1 Outcome: 09:22 Discharge ordered by . ms3 09:35 Discharged to home ambulatory. ko1 09:35 Condition: improved 09:35 Discharge instructions given to patient, Instructed on discharge instructions, follow up and referral plans. medication usage, Demonstrated understanding of instructions, follow-up care, medications, Prescriptions given X 2. 09:36 Patient left the ED. ko1 Signatures: Lavern Christopher, RN RN Jim Robin DO DO ms3 Angela Eckert Kathy, JIN RN ko1
--- NOTE | 2022-10-25 09:23 | EDPHYS ---
Physician Documentation [facility] Name: Elías Marinelli Age: 32 yrs Sex: Male : 1990 Arrival Date: 10/25/2022 Time: 06:24 Bed 13 Private MD: ED Physician Jim Beal HPI: 10/25 07:21 This 32 yrs old Male presents to ER via Ambulatory with complaints of Medication Refill.ms3 07:21 32-year-old male with past medical history of kidney stones presents for left flank ms3 pain that is been ongoing since being seen in the emergency department on September 26, 2022. Patient states his flank pain is an 8/10 and throbbing. Patient denies alleviating or inciting factors. Patient states he has not had a chance to follow-up with urology at this time and has run out of his [employer] Historical: - Allergies: 06:43 Gentamicin; kl 06:44 eye drop; kl - PMHx: 06:43 kidnsye stone; kl - PSHx: 06:43 Appendectomy; kl - Immunization history:: Adult Immunizations not up to date. - Social history:: Smoking status: Patient reports the use of cigarette tobacco products, smokes one pack cigarettes per day. ROS: 07:21 Constitutional: Negative for fever, and chills. Neck: Negative for injury, pain, and ms3 swelling, Cardiovascular: Negative for chest pain, and palpitations. Respiratory: Negative for shortness of breath, cough, wheezing, and pleuritic chest pain, Abdomen/GI: Negative for abdominal pain, nausea, vomiting, diarrhea, and constipation, MS/Extremity: Negative for injury and deformity. 07:21 Back: Positive for flank pain, on the left. 07:21 All other systems are negative. Exam: 07:21 Constitutional: This is a well developed, well nourished patient who is awake, alert, ms3 and in no acute distress. Head/Face: Normocephalic, atraumatic. Neck: Trachea midline, no cervical lymphadenopathy. Supple, full range of motion without nuchal rigidity, or vertebral point tenderness. No Meningismus. Chest/axilla: Normal chest wall appearance and motion. Nontender with no deformity. Cardiovascular: Regular rate and rhythm with a normal S1 and S2. No gallops, murmurs, or rubs. Normal PMI, no JVD. No pulse deficits. Respiratory: Lungs have equal breath sounds bilaterally, clear to auscultation and percussion. No rales, rhonchi or wheezes noted. No increased work of breathing, no retractions or nasal flaring. Abdomen/GI: Soft, non-tender, with normal bowel sounds. No distension or tympany. No guarding or rebound. No evidence of tenderness throughout. 07:21 Back: pain, that is moderate, of the left mid back, ROM is normal, muscle spasm. Vital Signs: 06:39 BP 147 / 100; Pulse 76; Resp 20; Temp 98.1; Pulse Ox 100% on R/A; Weight 86.18 kg; kl Height 6 ft. 0 in. ; Pain 10/10; 07:15 BP 142 / 82; Pulse 74; Resp 18; Pulse Ox 99% ; ko1 09:35 BP 138 / 74; Pulse 68; Resp 16; Pulse Ox 99% ; ko1 06:39 Body Mass Index 25.77 (86.18 kg, 182.88 cm) kl 06:39 Pain Scale: Adult kl MDM: 07:21 Patient medically screened. ms3 09:31 Data reviewed: vital signs, nurses notes, lab test result(s), and as a result, I will ms3 discharge patient. I considered the following discharge prescriptions or medication management in the emergency department Medications were administered in the Emergency Department. See MAR. Care significantly affected by the following Social Determinants of Health: Poor access to healthcare and/or lack of insurance. Counseling: I had a detailed discussion with the patient and/or guardian regarding: the historical points, exam findings, and any diagnostic results supporting the discharge/admit diagnosis, lab results, the need for outpatient follow up, to return to the emergency department if symptoms worsen or persist or if there are any questions or concerns that arise at home. Response to treatment: the patient's symptoms have markedly improved after treatment, and as a result, I will discharge patient. Special discussion: I discussed with the patient/guardian in detail that at this point there is no indication for admission to the hospital. It is understood, however, that if the symptoms persist or worsen the patient needs to return immediately for re-evaluation. 10/25 07:12 Order name: GUILLERMO; Complete Time: 09:03 ms3 10/25 07:12 Order name: Urinalysis w/ reflexes; Complete Time: 09:17 ms3 10/25 07:12 Order name: CBC with Diff; Complete Time: 09:03 ms3 Administered Medications: 07:28 Drug: Lactated Ringers Solution IV 1000 ml Route: IV; Rate: bolus; Site: right ko1 antecubital; 08:53 Follow up: Response: No adverse reaction; IV Status: Completed infusion; IV Intake: ko1 1000ml 07:29 Drug: Ketorolac IVP 10 mg 10 mg Route: IVP; Site: right antecubital; ko1 08:53 Follow up: Response: No adverse reaction; Pain is decreased ko1 Disposition Summary: 10/25/22 09:22 Discharge Ordered Location: Home ms3 Condition: Stable ms3 Diagnosis - Kidney stone ms3 - Left Flank ms3 Followup: ms3 - With: - When: 2 - 3 days - Reason: Recheck today's complaints Discharge Instructions: - Discharge Summary Sheet ms3 - Kidney Stones, [id number] ms3 Forms: - Medication Reconciliation Form ms3 - Thank You Letter ms3 - Antibiotic Education ms3 - Prescription Opioid Use ms3 - Patient Portal Instructions.htm ms3 Prescriptions: - ketorolac 10 mg Oral tablet - take 1 tablet by ORAL route every 4 to 6 hours for 1 day as needed for pain; do ms3 not exceed 4 doses per 24 hrs; 20 tablet; Refills: 0, Product Selection Permitted - tamsulosin 0.4 mg Oral capsule - take 1 capsule by ORAL route every 24 hours; 20 capsule; Refills: 0, Product ms3 Selection Permitted Signatures: Dispatcher [employer] Lavern Casillas, RN Jim Metcalf, DO DO ms3 Zoë Olivares RN RN ko1
[2022-10-25 09:44] VITALS: TEMP 98.1
[2022-10-25 09:46] VITALS: O2SAT 99
[2022-10-25 09:48] VITALS: BP 138/74
== END 2022-10-25 09:36 | disposition home or self-care (01) ==
LOC: ER 06:24
DX: N20.0 Calculus of kidney (principal)
CPT/HCPCS: 36415; 80048; 81001; 85025; 96361; 96374; 99284; J7120

== ENCOUNTER 2023-01-04 19:19 | Emergency (ER) | payer SELFPAY ==
--- OUTSIDE RECORDS SUMMARY | 2023-01-04 19:23 | XMS REPORT | Continuity of Care Document ---
:1990 Author Organization [facility] t Address [address] [place] [address] Care Team Providers Name Role Phone PCP, [...] s IN INGREDI 05-14 ity of 00:00: [address] Medications This patient has no known medications. Procedures This patient has no known procedures. Encounters Start End Encounter Admission Attending Care Care Encounter Source Date/Time Date/Time Type Type Clinicians Facility Department ID 2019-10-02 2019-10-02 Emergency X VIANEY [facility] ERT [id number] 08:16:40 10:55:00 ISMA [facility] 2019-03-25 2019-03-25 Emergency X NINFA [facility] ERT [id number] 17:46:17 20:04:00 GAYLE [facility] Results This patient has no known results.
[2023-01-04 20:32] LABS: Absolute Lymphocytes (CBC) 3.3 K/uL (0.7-4.9); Hematocrit 48.9 % (39.6-49.0); Lymphocytes % 26.4 % (15.3-44.8); MCV 89.1 fL (80-100); MPV 6.9 fL (7.6-11.3); Platelets 239 thou/uL (152-406); RBC Red Blood Cell Count 5.48 M/uL (4.33-5.43)
[2023-01-04 20:50] LABS: Potassium 3.5 mEq/L (3.5-5.1); Troponin High Sensitivity 6.6 pg/mL (<58.9)
--- NOTE | 2023-01-04 20:51 | RAD REPORT ---
[facility]20 [facility] CLINICAL HISTORY: PALPITATIONS COMPARISON: Chest Single View dated 09/15/2022; CHEST PA AND LAT 2 VIEW dated 10/11/2013; CHEST SINGLE VIEW dated 07/09/2013 TECHNIQUE: Portable AP view of the chest. FINDINGS: The lungs are clear. No pneumothorax or effusion. The cardiomediastinal contours are unre markable. IMPRESSION: No acute cardiopulmonary process.
--- NOTE | 2023-01-04 21:52 | ER ---
Nurse's Notes [facility] Name: Elías Marinelli Age: 32 yrs Sex: Male : 1990 Arrival Date: 01/04/2023 Time: 19:19 Bed 5 Private MD: Diagnosis: Pain in left arm;Palpitations Presentation: 01/04 19:26 Chief complaint: Patient states: About 45 minutes ago my left arm started to feel numb, ha1 I got dizzy, and nausea. I also feel chest palpitations. Coronavirus screen: Vaccine status: Patient reports being unvaccinated. Ebola Screen: No symptoms or risks identified at this time. Initial Sepsis Screen: Does the patient meet any 2 criteria? No. Patient's initial sepsis screen is negative. Does the patient have a suspected source of infection? No. Patient's initial sepsis screen is negative. Risk Assessment: Do you want to hurt yourself or someone else? Patient reports no desire to harm self or others. Onset of symptoms was January 04, 2023. 19:26 Method Of Arrival: Ambulatory ha1 19:26 Acuity: ALEE 3 ha1 Triage Assessment: 19:28 General: Appears comfortable, Behavior is calm, cooperative. Pain: Complains of pain in ha1 left arm Pain does not radiate. Pain currently is 8 out of 10 on a pain scale. Quality of pain is described as numb. Neuro: Level of Consciousness is awake, alert, obeys commands, Oriented to person, place, time, situation. Cardiovascular: Patient's skin is warm and dry. Respiratory: Airway is patent Respiratory effort is even, unlabored, Respiratory pattern is regular, symmetrical. Derm: Skin is pink, warm \T\ dry. Historical: - Allergies: 19:28 eye drop; ha1 19:28 Gentamicin; ha1 - PMHx: 19:28 Kidney stone; ha1 20:25 kidnsye stone; kd3 - PSHx: 19:28 Appendectomy; ha1 - Immunization history:: Adult Immunizations up to date. - Social history:: Smoking status: Patient reports the use of cigarette tobacco products, denies chronic smoking, but will smoke occasionally. Screenin:32 Abuse screen: Denies threats or abuse. Denies injuries from another. Nutritional ha1 screening: No deficits noted. Tuberculosis screening: No symptoms or risk factors identified. 20:25 [facility] ED Fall Risk Assessment (Adult) History of falling in the last 3 months, kd3 including since admission No falls in past 3 months (0 pts) Confusion or Disorientation No (0 pts) Intoxicated or Sedated No (0 pts) Impaired Gait No (0 pts) Mobility Assist Device Used No (0 pt) Altered Elimination No (0 pt) Score/Fall Risk Level 0 - 2 = Low Risk Maintained a safe environment. Assessment: 20:26 Pain: Pain began suddenly. kd3 20:26 General: Appears uncomfortable, Behavior is anxious. Pain: Complains of pain in left kd3 arm. Neuro: Level of Consciousness is awake, alert, obeys commands, Oriented to person, place, time, situation. Cardiovascular: Patient's skin is warm and dry. Vital Signs: 19:26 BP 149 / 95; Pulse 80; Resp 16; Temp 99; Pulse Ox 100% on R/A; Weight 85.28 kg; Height ha1 6 ft. 0 in. ; Pain 8/10; 22:14 BP 134 / 94; Pulse 72; Resp 16; Pulse Ox 99% on R/A; kd3 19:26 Body Mass Index 25.50 (85.28 kg, 182.88 cm) ha1 19:26 Pain Scale: Adult ha1 ED Course: 19:21 Patient arrived in ED. jj6 19:28 Triage completed. ha1 19:33 Cindy Santana FNP-C [facility]. kb 19:33 Lionel Gomez MD is Attending Physician. kb 20:12 Dimple Panda, JIN is Primary Nurse. kd3 20:22 XRAY Chest (1 view) In Process Unspecified. EDMS 20:24 No provider procedures requiring assistance completed. Inserted saline lock: 20 gauge kd3 in right antecubital area, using aseptic technique. Blood collected. Patient maintains SpO2 saturation greater than 95% on room air. 20:24 Arm band placed on right wrist. EKG completed in triage. Results shown to . kd3 20:25 Patient has correct armband on for positive identification. Provided Education on: S/S kd3 of heart attack . Client placed on continuous cardiac and pulse oximetry monitoring. NIBP monitoring applied. youth nutritional monitor on. 22:14 IV discontinued, intact, bleeding controlled, No redness/swelling at site. Pressure kd3 dressing applied. Administered Medications: 22:14 Drug: Ibuprofen PO 600 mg PO once Route: PO; kd3 22:15 Follow up: Response: No adverse reaction kd3 Medication: 20:26 VIS not applicable for this client. kd3 Outcome: 21:52 Discharge ordered by MD. villafuerte 22:14 Discharged to home ambulatory, kd3 22:14 Condition: stable 22:14 Discharge instructions given to patient, family, Instructed on discharge instructions, follow up and referral plans. Demonstrated understanding of instructions, follow-up care, 22:15 Patient left the ED. kd3 Signatures: Dispatcher [employer] EDSC Cindy Santana, COAL FEEDER OPERATOR-C COAL FEEDER OPERATOR-CkEdita Garcia jj6 Dimple Panda RN RN kd3 Vale Brewer RN RN ha1
--- NOTE | 2023-01-04 21:52 | EDPHYS ---
Physician Documentation [facility] Name: Elías Marinelli Age: 32 yrs Sex: Male : 1990 Arrival Date: 01/04/2023 Time: 19:19 Bed 5 Private MD: ED Physician Lionel Gomez HPI: 01/04 21:27 This 32 yrs old Male presents to ER via Ambulatory with complaints of Irregular Pulse, kb LEFT ARM TIGHTNESS, Nausea, Blurred Vision, Dizziness. 21:27 The patient presents with a history of heart racing. Context: The symptoms occur at kb rest. Onset: The symptoms/episode began/occurred 1 hour(s) ago. Duration: The patient or guardian reports a single episode. Modifying factors: The symptoms are aggravated by nothing. The symptoms are alleviated by nothing. Associated signs and symptoms: Pertinent positives: anxiety, dizziness. Severity of symptoms: At their worst the symptoms were mild moderate in the emergency department the symptoms are unchanged. The patient has experienced similar episodes in the past, a few times. The patient has not recently seen a physician. 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 States he has had similar episodes in the past due to anxiety. Historical: - Allergies: 19:28 eye drop; ha1 19:28 Gentamicin; ha1 - PMHx: 19:28 Kidney stone; ha1 20:25 kidnsye stone; kd3 - PSHx: 19:28 Appendectomy; ha1 - Immunization history:: Adult Immunizations up to date. - Social history:: Smoking status: Patient reports the use of cigarette tobacco products, denies chronic smoking, but will smoke occasionally. ROS: 21:26 Constitutional: Negative for fever, chills, and weight loss, kb 21:26 Cardiovascular: Positive for palpitations, 21:26 MS/extremity: Positive for pain, of the left arm, 21:26 Neuro: Positive for dizziness, 21:26 All other systems are negative, Exam: 21:26 Constitutional: This is a well developed, well nourished patient who is awake, alert, kb and in no acute distress. Head/Face: Normocephalic, atraumatic. Eyes: Pupils equal round and reactive to light, extra-ocular motions intact. Lids and lashes normal. Conjunctiva and sclera are non-icteric and not injected. Cornea within normal limits. Periorbital areas with no swelling, redness, or edema. ENT: Moist Mucous membranes Cardiovascular: Regular rate Respiratory: Respirations even and unlabored. No increased work of breathing. Talking in full sentences Abdomen/GI: Soft, non-tender. No distention Skin: Warm, dry with normal turgor. Normal color. MS/ Extremity: Pulses equal, no cyanosis. Neurovascular intact. Full, normal range of motion. Neuro: Awake and alert, GCS 15, oriented to person, place, time, and situation. Moves all extremities. Normal gait. 21:26 ECG was reviewed by the Attending Physician. Vital Signs: 19:26 BP 149 / 95; Pulse 80; Resp 16; Temp 99; Pulse Ox 100% on R/A; Weight 85.28 kg; Height ha1 6 ft. 0 in. ; Pain 8/10; 22:14 BP 134 / 94; Pulse 72; Resp 16; Pulse Ox 99% on R/A; kd3 19:26 Body Mass Index 25.50 (85.28 kg, 182.88 cm) ha1 19:26 Pain Scale: Adult ha1 MDM: 19:34 Patient medically screened. kb 21:29 Differential diagnosis: arrythmia, dehydration, stress disorder. Data reviewed: vital kb signs, nurses notes. Counseling: I had a detailed discussion with the patient and/or guardian regarding the historical points, exam findings, and any diagnostic results supporting the discharge/admit diagnosis, lab results, radiology results, the need for outpatient follow up, a family practitioner, to return to the emergency department if symptoms worsen or persist or if there are any questions or concerns that arise at home. 01/04 19:35 Order name: Basic Metabolic Panel; Complete Time: 20:52 kb 01/04 19:35 Order name: CBC with Diff; Complete Time: 20:37 kb 01/04 19:35 Order name: Troponin HS; Complete Time: 20:52 kb 01/04 19:35 Order name: XRAY Chest (1 view); Complete Time: 20:54 kb 01/04 19:35 Order name: EKG; Complete Time: 19:36 kb 01/04 19:35 Order name: Cardiac monitoring; Complete Time: 20:18 kb 01/04 19:35 Order name: EKG - Nurse/Tech; Complete Time: 20:09 kb 01/04 19:35 Order name: IV Saline Lock; Complete Time: 20:18 kb 01/04 19:35 Order name: Labs collected and sent; Complete Time: 20:18 kb 01/04 19:35 Order name: O2 Per Protocol; Complete Time: 20:18 kb 01/04 19:35 Order name: O2 Sat Monitoring; Complete Time: 20:18 kb EC:26 Rate is 75 beats/min. Rhythm is regular. QRS [place] is Normal. RI interval is normal at kb 154 msec. QRS interval is normal at 94 msec. QT interval is normal at 424 msec. Administered Medications: 22:14 Drug: Ibuprofen PO 600 mg PO once Route: PO; kd3 22:15 Follow up: Response: No adverse reaction kd3 Disposition: 01/05 10:07 Co-signature as Attending Physician, Lionel Gomez MD I reviewed the patient's care rt provided by the Advanced Practice Provider and agree with the diagnosis and treatment plan. Disposition Summary: 01/04/23 21:52 Discharge Ordered Notes: Location: Home kb Condition: Stable kb Diagnosis - Pain in left arm kb - Palpitations kb Followup: kb - With: Emergency Department - When: As needed - Reason: Worsening of condition Followup: kb - With: Private Physician - When: 2 - 3 days - Reason: Recheck today's complaints, Continuance of care, Re-evaluation by your physician Discharge Instructions: - Discharge Summary Sheet kb - Musculoskeletal Pain kb - Palpitations, [id number] kb Forms: - Medication Reconciliation Form kb - Thank You Letter kb - Antibiotic Education kb - Prescription Opioid Use kb - Patient Portal Instructions kb - Leadership Thank You Letter kb Signatures: Dispatcher [employer] Cindy Chavis FNP-C FNP-Dimple Macias, RN RN kd3 Vale Brewer, RN RN ha1 Lionel Gomez MD MD rt
[2023-01-04] MEDS ORDERED: IBUPROFEN 400 MG TAB ONE (22:20)
[2023-01-04] MEDS ORDERED: IBUPROFEN 200 MG TAB PO ONE (22:20)
[2023-01-04 23:32] VITALS: BP 149/95; TEMP 99; O2SAT 100
== END 2023-01-04 22:15 | disposition home or self-care (01) ==
LOC: ER 19:19
DX: R00.2 Palpitations (principal); M79.602 Pain in left arm; Z88.8 Allergy status to other drugs, medicaments and biological substances
CPT/HCPCS: 36415; 71045; 80048; 84484; 85025